=== PATIENT | female | born 2000 | race Two or more races ===

== ENCOUNTER 2024-08-17 04:20 | Inpatient (IN) | payer MEDICAID, SELFPAY ==
[2024-08-17] VITALS (47 sets, daily range): BP systolic 90–123; BP diastolic 22–76; PULSE 16–107; RESP 13–22; TEMP 36.7–37.1; O2SAT 97–100; BMI 26.5
[2024-08-17] MEDS: TERBUTALINE SULF INJ 1 MG/ML VIAL 0.25 MG SC (04:53)
[2024-08-17] MEDS: RINGERS LACTATED 1000 ML 1,000 ML 999 ML IV (05:00)
[2024-08-17 05:51] LABS: Basophils % (Auto) 0 % (0-2.5); Eosinophils # (Auto) 0.1 Thou/mm3 (0.0-0.5); Eosinophils % (Auto) 1 % (0-10); Hemoglobin 10.9 g/dL (12.0-16.0); Immature Granulocytes % (Auto) 0 % (0-0); Immature Granulocytes Auto 0.04 Thou/mm3 (0.00-0.00); Lymphocytes # (Auto) 3.3 Thou/mm3 (1.0-4.8); Lymphocytes % (Auto) 26 % (10-50); Mean Corpuscular HGB Conc 34.1 g/dl (31.0-37.0); Mean Corpuscular Hemoglobin 29.9 pg (25.0-35.0); Mean Corpuscular Volume 88 fL (80-100); Monocytes % (Auto) 8 % (0-12); Neutrophils # (Auto) 8.1 Thou/mm3 (1.8-7.7); Neutrophils % (Auto) 64 % (37-80); Nucleated Red Blood Cell % 0 /100 WBC (0); Platelet Count 207 Thou/mm3 (140-440); RDW Standard Deviation 39.7 fL (36.4-46.3); Red Blood Count 3.64 Miln/mm3 (4.00-5.20); White Blood Count 12.6 Thou/mm3 (3.6-11.0)
[2024-08-17 06:36] LABS: Syphilis Nonreactive (Nonreactive)
--- NOTE | 2024-08-17 08:19 | ESHP_ITS ---
Documentation for date of: 08/17/24 OB Labor/Induct. HPI History of Present Illness Chief complaint: painful contractions : 2 Para: 1 Term pregnancies: 1 pregnancies: 0 Living children: 1 History of Abortions: Spontaneous and Elective: 0 History of Vaginal deliveries: 0 History of sections: Yes FABI: 08/24/24 Gestational Age (weeks): 39 Gestational Age (days): 0 History of present illness: Patient presents with regular/painful ctx. No LOF, no vaginal bleeding. Feels normal movement. She is scheduled for RLTCS at noon today. History of Present Dating criteria: based on 1st trimester US only Adequate Care: Yes Ultrasounds: normal 1st trimester US and normal mid trimester US Narrative: History of primary section in [place] in 2019, scheduled for history of a left hip surgery in 2011 that limits patient's hip mobility. She had a cerclage in first , but no cerclage needed in current . This has been complicated by recurrent/resistant UTI (K. pneumo) treated multiple times with eventual suppression on daily keflex. Labs Maternal Blood Type: O Pos Labs: Positive: Rubella Titre and Negative: RPR, Hepatitis B, HIV, Chlamydia, Gonorrhea and Group Beta Strep Review of Systems Review of Systems Systems Reviewed: All systems reviewed, normal except as documented Constitutional Constitutional: Denies fever(s) and Denies headache(s) ENT Ears, Nose, Mouth, and Throat: Denies headache(s) and Denies vertigo Cardiovascular Cardiovascular: Denies chest pain and Denies dyspnea Respiratory Respiratory: Denies cough and Denies dyspnea Gastrointestinal Gastrointestinal: Denies vomiting Genitourinary Genitourinary: Denies abnormal vaginal bleeding and Denies dysuria Neurologic Neurologic: Denies headache(s) and Denies vertigo Past Medical History Family History OTHER FAMILY HX: All 4 grandparents have diabetes Surgical History SURGICAL: Positive Section OTHER SURGICAL HX: left hip surgery in 2011 with hardware removal 3 years after Social History SOCIAL: Good support. Denies ETOH/tobacco/illicit drug use. Past Medical History Comments PMH COMMENT: Patient denies any significant PMhx other than her surgical hx as noted and complications as noted. Meds Home Medications and Allergies Home Medications ?Medication ?Instructions ?Recorded ?Confirmed ?Type eksxedjy-jyp-Mc-FA 1 mg 2 tab PO DAILY 06/12/24 06/12/24 History tablet Allergies Allergy/AdvReac Type Severity Reaction Status Date / Time No Known Allergies Allergy Verified 06/12/24 09:07 OB Exam Physical Exam Vital signs: Temp Pulse Pulse Ox 98.8 F 66 100 08/17/24 04:20 08/17/24 04:53 08/17/24 07:08 Narrative: General: well developed, well nourished, no acute distress, conversant Cardiac: normal heart rate Lungs: breathing without distress Abdomen: soft, gravid, non-tender, no rebound or guarding. Previous low vertical midline incision noted, well healed. Extremities: no pain with palpation of calves Detailed Labor and Delivery Exam Dilation (cm): 1 Effacement (%): 40 station: -2 Presentation: Vertex Membranes: intact monitor accelerations: 15x15 monitor decelerations: Prolonged (one 3 minute FHR decel to 100's while on her back, repositioned and fully resolved back to Cat I FHRT) regional intermodal truck driver variability: Moderate (11-25) Contraction frequency (min): q1-2 minutes initially, after IVF spaced to q9min OB Results Labs 08/17/24 05:00 Labs: Short CBC 08/17/24 Range/Units 05:00 WBC 12.6 H (3.6-11.0) Thou/mm3 Hgb 10.9 L (12.0-16.0) g/dL Hct 32.0 L (36.0-46.0) % Plt Count 207 (140-440) Thou/mm3 OB Assessment & Plan Assessment and Plan (1) History of delivery: Status: Acute Assessment and plan: Patient is a 24yo with SIUP at 39w0d presenting with painful contractions q1-2min with RLTCS scheduled at noon today. Vitals wnl, benign exam. Reassuring assessment. After receiving a dose of terbutaline and IVF, contractions spaced out to 9 minutes. No s/sx of placental abruption or uterine rupture. History of primary section in [place] in 2019, scheduled for history of a left hip surgery in 2011 that limits patient's hip mobility. She had a cerclage in first , but no cerclage needed in current . This has been complicated by recurrent/resistant UTI (K. pneumo) treated multiple times with eventual suppression on daily keflex. Plan: -Admit to L&D -Establish IV, routine labs -NPO -Counseled/consented re: section. Maori-speaking RN present to translate for patient encounter including conversation regarding r/b/a. Discussed option for which she declines. Discussed all r/b/a of RLTCS to include: bleeding (possible need for blood transfusion), infection (subcutaneous, deeper layers or uterine with possible need for prolonged admission or re-admission for IV antibiotics, I&D with wound packing, etc), injury to nearby structures such as bladder, bowel, ureters, blood vessels, nerves with possible need for re-operation, pain, injury to baby, rare event such as: hysterectomy, DVT/PE, . Discussed patient had low midline vertical incision in [place], but will perform pfannenstiel incision today which she is amenable to. Answered all questions to patient and their support person's satisfaction. -IV abx ppx: 2g IV anceph -Will obtain UA to rule out UTI given hx of recurrent/resistant UTI during -Nursing and anesthesia team aware of plan for section. Will proceed to OR when team is ready. Kady Arteaga MD (2) Uterine contractions: Status: Acute (3) UTI in : Status: Acute (3) UTI in Qualifiers: Trimester: unspecified trimester Qualified Code(s): O23.40 - Unspecified infection of urinary tract in , unspecified trimester
[2024-08-17] MEDS: ceFAZolin/D5W 2 GM IV 2 GM/100 ML BAG IV (09:25)
[2024-08-17] MEDS: CITRIC ACID/SODIUM CITR 15 ML UDC (BICITRA) 30 ML PO (09:25)
[2024-08-17] MEDS: FAMOTIDINE INJ 10 MG/ML VIAL 2 ML 20 MG IV (09:26)
--- NOTE | 2024-08-17 11:13 | PD.GYNPROC ---
Operative Note - CUSTOMER ENGAGEMENT ANALYST Procedure Date of procedure: 08/17/24 Procedure Performed: Repeat low transverse section Indication: Celena is a 24yo [id number] presenting to labor and delivery at term with regular painful contractions in the setting of history of prior section, was scheduled for repeat later on the same day. Just before going back to the OR, she had SROM, clear. Pre-Op diagnosis: SIUP at term with history of prior section in active labor desiring repeat section Post-Op diagnosis: SIUP at term with history of prior section in active labor desiring repeat section Procedure description: After obtaining informed consent, the patient was taken to the operating room. There was reassuring heart rate tracing prior. Spinal anesthesia was administered. A corea catheter was placed and bilateral sequential compression devices were placed. She was then prepped and draped in the normal sterile fashion in the dorsal supine position with left lateral tilt. A timeout was performed to confirm patient name, date of , procedure and indication. The team was in agreement. Spinal anesthesia was found to be adequate using an Allis clamp. Anceph 2g IV x1 were given for prophylaxis. A Pfannenstiel skin incision was then made with the scalpel and carried through to the underlying layer of fascia. The fascia was incised in the midine and the incision was extended laterally with the Arceo scissors. The superior and inferior aspects of the fascial incision were then grasped with the Omer clamps, elevated and the underlying rectus muscles were dissected off bluntly and sharply. The peritoneum was entered digitally and the rectus muscles were then in the midline. The peritoneal incision was then extended superiorly and inferiorly with good visualization of the bladder. An Lg retractor was placed and the vesicouterine peritoneum was then identified, grasped with the pickups, and entered sharply with the Metzenbaum scissors. The incision was extended laterally and the bladder flap created digitally. The lower uterine segment was scored in a transverse fashion with the scalpel. The uterus was then entered bluntly and the incision was extended with traction with clear amniotic fluid noted. The 's head was elevated to the level of the incision. Fundal pressure was applied. The head was delivered atraumatically in the OA position. The anterior shoulder, posterior shoulder and corpus were delivered without difficulty. The nose and mouth were suctioned with bulb suction and cord was clamped x2 and cut. The was handed off to the awaiting nursing team. Cord blood obtained for typing. The placenta was then removed with uterine massage and cord traction. The uterus was exteriorized and cleared of all clot and debris. The uterine incision was repaired with 0-vicryl suture in a running locking fashion. A second layer of interrupted sutures using O-vicryl was used to closed the hysterotomy incision in an imbricating fashion. The uterine incision was inspected and hemostasis was noted. During closure of the uterus, patient was vomiting and great care was taken to gently push the bowel back within the abdomen each time to keep it out of the immediate operative field. In addition to standard IV pitocin, patient received TXA 1g IV x1 and methergine 0.2mg IM x1 with good tone eventually achieved (uterus would firm up then become boggy again- this happened a few times, until ultimately consistent firm tone was achieved). The posterior cul-de-sac was suctioned and the uterus returned to the abdomen. The gutters were cleared of all clot. Lg retractor was removed. The rectus muscles were inspected and noted to be hemostatic. The fascia was reapproximated with 0-Vicryl suture in a running fashion. The subcutaneous tissue was then irrigated. Sis's fascia was reapproximated using 3-0 vicryl suture in a running fashion. The skin was closed using 4-0 monocryl suture in running subcuticular fashion. The incision was cleaned with a wet lap and dried with a dry lap. Wqjbyvcnk-oxjmwbxeyyp-nvfe bandage was applied overlying the incision and activated according to brake tester instructions. The vagina was cleared of all blood clots without active bleeding noted. Fundus was firm at the umbilicus. 800mcg MT cytotec was placed at the end of the procedure to keep good continued uterine tone. Sponge, lap and needle counts were correct x2. The procedure was without complications and the patient tolerated the procedure well. She was taken to recover further on Labor and Delivery, in stable condition. The procedure was greatly assisted (retraction and assistance with delivery of the baby as well as skin suturing) by the LASOHN Burden. Fluid amount (mL): 800 Urine output (mL): 300 Estimated blood loss (ml): 700 Findings: Female in cephalic presentation, apgars 8/9, weight 2685g, vigorous with spontaneous cry. Uterus, fallopian tubes and ovaries overall normal in appearance. Urine clear yellow at end of procedure. Complications: none Surgical staff Operation Date: 08/17/24 09:45 Case Staff BUSINESS DEVELOPMENT ENGINEER: Raymond Hebert RN First Assistant: Maria Alejandra Burden RNmolded frames assembler: Alberto Coughlin Diagnosis Discharge Diagnosis (1) UTI in : Status: Acute (2) Uterine contractions: Status: Acute (3) History of delivery: Status: Acute Problem List Completed Was Problem List Reviewed/Reconciled?: Yes (1) UTI in Qualifiers: Trimester: unspecified trimester Qualified Code(s): O23.40 - Unspecified infection of urinary tract in , unspecified trimester
--- NOTE | 2024-08-17 11:35 | PD.LDDELS ---
Vacuum Assisted Delivery Additional Comments Additional comments: Uncomplicated repeat low transverse section, see my operative report dated 08/17/24 for further details. Data ([place]) Data Hx Section: Yes Reason for Primary Section: last 2020 scheduled for hx of hip surgery with minimal mobility : 2 Para: 1 Term: 1 : 0 : 0 Delivery Data ([place]) Labor Data ROM Date: 08/17/24 ROM Time: 08:45 Rupture Type: SROM Amniotic Fluid: Clear Delivery Data Labor Onset Stage 1 Date: 08/17/24 Labor Onset Stage 1 Time: 00:00 Delivery Date: 08/17/24 Delivery Time: 10:14 Placenta Delivery Date: 08/17/24 Placenta Delivery Time: 10:15 Delivered by: Kady Arteaga Delivery nurse: Ja Welsh Other staff at delivery: Nursery Nurse Other staff at delivery: RT Other staff at delivery: Yamile Blum Other staff at delivery: GOMER Delivery Method Delivery: Delivery Type: Repeat Anesthesia Type Primary Anesthesia: Spinal Data ([place]) [place]mer Data Gender: Female Infant Weight Grams: 2685 1 Minute Total: 8 5 Minute Total: 9
[2024-08-17] MEDS: KETOROLAC INJ 30 MG/ML VIAL IVP (14:22)
[2024-08-17] MEDS: OXYTOCIN in NS 20 units 20 UNIT/1,000 ML BAG 125 UNIT IV (18:32)
[2024-08-18 03:50] VITALS: BP 100/64; PULSE 66; RESP 18; TEMP 37.1; O2SAT 97
[2024-08-18 05:34] LABS: Basophils # (Auto) 0.1 Thou/mm3 (0.0-0.2); Basophils % (Auto) 0 % (0-2.5); Eosinophils # (Auto) 0.1 Thou/mm3 (0.0-0.5); Eosinophils % (Auto) 0 % (0-10); Hematocrit 24.7 % (36.0-46.0); Hemoglobin 8.1 g/dL (12.0-16.0); Immature Granulocytes % (Auto) 0 % (0-0); Immature Granulocytes Auto 0.08 Thou/mm3 (0.00-0.00); Lymphocytes # (Auto) 2.5 Thou/mm3 (1.0-4.8); Lymphocytes % (Auto) 14 % (10-50); Mean Corpuscular HGB Conc 32.8 g/dl (31.0-37.0); Mean Corpuscular Hemoglobin 29.1 pg (25.0-35.0); Mean Corpuscular Volume 89 fL (80-100); Monocytes # (Auto) 1.9 Thou/mm3 (0.0-0.8); Monocytes % (Auto) 10 % (0-12); Neutrophils # (Auto) 13.7 Thou/mm3 (1.8-7.7); Neutrophils % (Auto) 75 % (37-80); Nucleated Red Blood Cell % 0 /100 WBC (0); Platelet Count 162 Thou/mm3 (140-440); RDW Standard Deviation 40.4 fL (36.4-46.3); Red Blood Count 2.78 Miln/mm3 (4.00-5.20); White Blood Count 18.3 Thou/mm3 (3.6-11.0)
[2024-08-18 07:58] VITALS: BP 106/70; PULSE 63; RESP 16; TEMP 37; O2SAT 98
--- NOTE | 2024-08-18 09:10 | ESPR_ITS ---
Subjective Subjective Interval history: POD 1 from [facility] after labor and SROM Patient doing well no issues . Passing gas. Baby at beside. Pain well controlled, bleeding within normal limits. Exam Vital Signs Temp Pulse Resp BP Pulse Ox O2 Del Method 98.6 F 63 16 106/70 98 Room Air 08/18/24 07:58 08/18/24 07:58 08/18/24 07:58 08/18/24 07:58 08/18/24 07:58 08/18/24 07:58 Narrative Exam General: NAD RESP: normal work of breathing Abdomen: soft, gravid, non-tender, no rebound or guarding. Bandage intact Extremities: no pain with palpation of calves and no unilateral swelling Objective Labs 08/18/24 05:08 Labs: Laboratory Results - last 24 hr 08/18/24 05:08 WBC 18.3 H D RBC 2.78 L Hgb 8.1 L D Hct 24.7 L MCV 89 MCH 29.1 MCHC 32.8 RDW Std Deviation 40.4 Plt Count 162 D Neut % (Auto) 75 Lymph % (Auto) 14 [place] % (Auto) 10 Eos % (Auto) 0 Baso % (Auto) 0 Neut # (Auto) 13.7 H Lymph # (Auto) 2.5 [place] # (Auto) 1.9 H Eos # (Auto) 0.1 Baso # (Auto) 0.1 Immature Gran # (Auto) 0.08 H Absolute Nucleated RBC 0.00 Immature Gran % 0 Nucleated RBC % 0 Assessment & Plan Problem List (1) UTI in : Status: Acute (2) Uterine contractions: Status: Acute (3) History of delivery: Status: Acute Plan Comment Plan Comment: -Continue routine /post-op care -HDS Hgb 10.9 -> 700cc EBL -> 8.1 -Regular diet -Pain control with motrin and norco -Ferrous sulfate for anemia -Encourage ambulation and use of IS Time Spent With Patient Time: Total time spent is greater than 50% in coordination of care (as documented) at patient's floor/unit and/or counseling patient:
[2024-08-18] MEDS: PRENATAL VITAMIN/FE FUM/FA TABLET 1 TAB PO (09:50)
[2024-08-18 12:27] VITALS: BP 107/68; PULSE 92; RESP 18; TEMP 36.9; O2SAT 98
[2024-08-18] MEDS: IBUPROFEN TAB 400 MG TABLET 800 MG PO (16:30)
[2024-08-18 19:50] VITALS: BP 120/73; PULSE 78; RESP 16; TEMP 36.9; O2SAT 98
[2024-08-18] MEDS: HYDROcodone/APAP 5/325 TABLET 1 TAB PO (19:51)
[2024-08-19 05:03] VITALS: BP 105/69; PULSE 58; RESP 18; TEMP 36.9; O2SAT 97
--- NOTE | 2024-08-19 06:46 | PD.LDPPPRG ---
Subjective Subjective Interval history: POD 2 from RLTCS after labor and SROM Patient doing well no issues . Baby at beside. . Pain well controlled, bleeding within normal limits. Voiding without issues. No lightheadedness when walking. Passing gas. Exam Vital Signs Temp Pulse Resp BP Pulse Ox O2 Del Method 98.4 F 58 L 18 105/69 97 Room Air 08/19/24 05:03 08/19/24 05:03 08/19/24 05:03 08/19/24 05:03 08/19/24 05:03 08/19/24 05:03 Narrative Exam General: NAD RESP: normal work of breathing Abdomen: soft, gravid, non-tender, no rebound or guarding, Fundus firm and at approximate levl of the umbilicus Incision: clean/dry Extremities: no pain with palpation of calves and no unilateral swelling Objective Labs 08/18/24 05:08 Assessment & Plan Problem List (1) History of delivery: Status: Acute (2) delivery delivered: Status: Acute Assessment Comment Assessment comment: 24 yo now now POD 2 from RLTCS after labor and SROM. Doing well this morning, HDS, meeting all postoperative milestones. Plan Comment Plan Comment: -Continue routine /post-op care -HDS Hgb 10.9 -> 700cc EBL -> 8.1 -Regular diet -Pain control with motrin and norco -Ferrous sulfate for anemia -Encourage ambulation and use of IS Time Spent With Patient Time: Total time spent is greater than 50% in coordination of care (as documented) at patient's floor/unit and/or counseling patient:
--- NOTE | 2024-08-19 06:52 | PD.LDDS ---
DS: Providers Provider Date of admission: 08/17/24 06:38 Primary care physician: Physician No Primary/Family Admitting Provider: Kady Arteaga MD Attending Provider on Admission: Letty Shirley MD Consults: 08/17/24 11:41 Referral Routine Comment: Attending Provider on DC: Letty Shirley MD Discharging Provider: Letty Shirley MD DS: Diagnosis Problem List Completed Was Problem List Reviewed/Reconciled?: Yes Summary/Hosp Course Brief History: 24 yo now presented with SROM in the setting of prior section at 39+05. She underwent RLTCS with no complications and delivered a female infant, apgars 8/9. 2685g. EBL 700cc. Patient progress appropriately during the postoperative period and met all milestones. She was discharged home on POD2 in stable condition. She was noted to have acute on chronic anemia and was asymptomatic and hemodynamically stable and was discharged homme with PO iron. Peripartum Data Procedures: Procedures Operation Date: 08/17/24 09:45 Actual Procedure Side Surgeon p in OB Kady Arteaga MD Time Spent with Patient Time attestation: Total time spent providing and/or coordinating discharge services: Exam Vital Signs Temp Pulse Resp BP Pulse Ox O2 Del Method 98.4 F 58 L 18 105/69 97 Room Air 08/19/24 05:03 08/19/24 05:03 08/19/24 05:03 08/19/24 05:03 08/19/24 05:03 08/19/24 05:03 Narrative Exam General: NAD RESP: normal work of breathing Abdomen: soft, gravid, non-tender, no rebound or guarding, Fundus firm and at approximate levl of the umbilicus Incision: clean/dry Extremities: no pain with palpation of calves and no unilateral swelling Discharge Plan Plan Patient Disposition: HOME (Self Care) Patient condition on transfer: Stable Prescriptions/Referrals Prescriptions/Med Rec: New hydrocodone-acetaminophen 5-325 mg Tablet 1 tab PO Q4HR MDD 4 tabs PRN (Reason: Patient rated pain 7 to 8) Qty: 10 0RF ibuprofen 400 mg Tablet 800 mg PO Q8HR PRN (Reason: Pain Scale 4-6 (Moderate) Qty: 25 0RF ferrous sulfate 325 mg (65 mg iron) tablet 325 mg PO QDAY Qty: 30 0RF docusate sodium [Colace] 100 mg capsule 100 mg PO QDAY Qty: 30 0RF No Action 1 mg Tablet 2 tab PO DAILY Referrals: No Primary/Family,Physician [Primary Care Provider] - Patient/Caregiver Discharge Instructions Education Materials: C Section Dc Print Language: Armenian Stand Alone Forms: Sri Award Info., Patient Portal Info Letter Discharge Order Discharge Orders: Discharge (Routine); Ordered 08/19/24 Ordered By: Letty Shirley Planned Discharge Date 08/19/24
[2024-08-19 08:00] VITALS: BP 104/67; PULSE 73; RESP 16; TEMP 36.9; O2SAT 97
[2024-08-19] MEDS: PRENATAL VITAMIN/FE FUM/FA TABLET 1 TAB PO (09:56)
== END 2024-08-19 15:35 | disposition home or self-care (01) | DRG 540 ==
LOC: S4SX 07:55 → S4NX 09:53 → S4SX 09:54 → S4NX 09:54
PROVIDERS: Admitting Provider Obstetrics & Gynecology; Visit Provider Student in an Organized Health Care Education/Training Program
PROC: 10D00Z1 Extraction of Products of Conception, Low, Open Approach (ICD-10-PCS; CPT 59514; principal; 2024-08-17 09:30)
DX: O34.211 Maternal care for low transverse scar from previous cesarean delivery (principal); Z37.0 Single live birth; Z3A.39 39 weeks gestation of pregnancy; O99.02 Anemia complicating childbirth
CPT/HCPCS: 36415; 85025; 86780; 86900; 86901; 94762; A4649; J0689; J1100; J1885; J2210; J2274; J2371; J2405; J2590; J2704; J3010; J3105; J3490; J7120; S0191; A9270; J2270